=== PATIENT | female | born 1955 | race Caucasian/White ===

== ENCOUNTER 2024-07-26 21:00 | Inpatient (IN) ==
--- NOTE | 2024-07-27 00:42 | History & Physical Report ---
Date of Service July 27, 2024 Assessment & Plan (1) NSTEMI (non-ST elevated myocardial infarction): Plan: - Elevated troponin now downtrending, upon arrival to MD trop= 65 (peaked at 117) - Repeat EKG largely unchanged from prior and without acute ischemic changes - s/p 324mg asp - monitor on telemetry - try to obtain prior records - TTE ordered - consult cardiology, NPO pending eval (2) Acute kidney injury superimposed on CKD: Plan: - creatine noted to be 2.2 on Aries, down to 1.86 this evening - baseline appears to be 1.5-1.6 - continue to trend (3) DM2 (diabetes mellitus, type 2): Plan: - Noted history of DM2, hemoglobin a1c ordered - home medications- metformin/glimepiride- held, Farxiga not formulary - Lantus-> dosing unclear 8 units daily on fill list, 10 units BID on written list per pt-> 8 units daily ordered adjust based on a1c and BGs - SSI ordered (4) HTN (hypertension): Plan: - continue amlodipine, propanol - hold valsartan in the setting of MUKESH (5) HLD (hyperlipidemia): Plan: - continue statin - repeat lipid panel qAM (6) Leg edema: Plan: - B/L L>R - states that left is always greater than right, had US prior to r/u DVT. No calf tenderness - Venous stasis vs CHF - No pulm edema on CXR, elevated BNP at 261 - does not appear overtly hypervolemic on exam - TTE pending - continue home Lasix dose-> 40mg daily Plan Code: Full Dispo: PCU Diet: NPO pending cardiology eval VTE Prophylaxis: SCD, defer chemical pending cardiology eval Admission and Anticipated Discharge Date Admission Date: July 26, 2024 History of Present Illness Primary Care Provider: Cisco Bassett MD 69 year old female with a past medical history of DM2, HTN, HLD, CKD presenting as transfer from [place] for NSTEMI and cardiology evaluation. Pt states that she had 1 hour of left sided chest pain on Friday. Has not had any further episodes of chest pain. Over the past 2-3 has had increase dyspnea with exertion, which prompted her to go to the ED. She notes that she had a cardiology catheterization 2 years ago, but denies any stent placement. States that she followed with Dr. Patt Mcduffie for cardiology until she left [place]. Notes that she also follows with nephrology for CKD. At [place] work-up was significant for: CXR without pulm edema, mild LLL atelectasis. Creatine= 2.25 (baseline appears to be about 1.5), BNP= 378, Troponin 117-> 97. CBC unremarkable. EKG with SR, 1st degree AV block, non=spefic ST changes in anterolateral leads, no overt signs of acute ischemia. Was given 324mg asp. Allergies Allergy/AdvReac Type Severity Reaction Status Date / Time codeine Allergy Verified 07/27/24 01:46 Home Medications Medication Instructions Recorded Confirmed Type amlodipine 10 mg tablet 10 mg DAILY 07/27/24 07/27/24 History dapagliflozin propanediol 10 mg 10 mg DAILY 07/27/24 07/27/24 History tablet (Farxiga) famotidine 20 mg tablet 20 mg BID 07/27/24 07/27/24 History furosemide 80 mg tablet 40 mg DAILY 07/27/24 07/27/24 History glimepiride 4 mg tablet 8 mg DAILY 07/27/24 07/27/24 History insulin glargine 100 unit/mL (3 8 unit subcut HS 07/27/24 07/27/24 History mL) subcutaneous pen (Lantus Solostar U-100 Insulin) metformin 500 mg tablet,extended 500 mg PO DAILY 07/27/24 07/27/24 History release 24 hr metformin 500 mg tablet,extended 500 mg PO DAILY 07/27/24 07/27/24 History release 24 hr potassium chloride 10 mEq 10 meq PO DAILY 07/27/24 07/27/24 History tablet,extended release pravastatin 20 mg tablet 20 mg DAILY 07/27/24 07/27/24 History propranolol 20 mg tablet 20 mg BID 07/27/24 07/27/24 History valsartan 320 mg tablet 320 mg DAILY 07/27/24 07/27/24 History Past Med/Surg History Problem List (Updated 07/27/24 @ 18:03 by Milton Dawson MD) Pulmonary embolism Acute congestive heart failure Abnormal EKG Elevated troponin Chest discomfort Leg edema Venous stasis HLD (hyperlipidemia) HTN (hypertension) DM2 (diabetes mellitus, type 2) Acute kidney injury superimposed on CKD NSTEMI (non-ST elevated myocardial infarction) Surgical History History of tubal ligation Hx of cholecystectomy Social History Smoking Status: Never smoker Second Hand Exposure: No; Do You Dip or Chew Tobacco: No; Tobacco Cessation Education Requested by Patient: No Hx Alcohol Use: No Hx Substance Use: No Preferred Language: Mexican Communication Ability: Effective Business Administration Instructor Required: No Beliefs That Will Affect Care: None Current Living Situation: Spouse Current Living Situation Comment: lives at home with Other Information That Helps Us Care for You: No Feels Safe at Home: Yes Safety Concerns: Feels Safe At This Time Assistive Devices: Cane Review of Systems Review of Systems: As per above Physical Exam Physical Exam: Constitutional: well-appearing, no acute distress HEENT: NCAT, no conjunctival injection CV: regular rhythm, no murmur appreciated, extremities well-perfused, 1+ LE edema right, 2+ left LE Resp: CTABL, no wheezes/rales/rhonchi appreciated, no increased work of breathing GI: soft, nondistended, nontender, BS normoactive MSK: no gross deformities appreciated Skin: warm, dry, no rash appreciated Neuro: alert, oriented, no focal neurologic deficit appreciated Results & Data Results & Data Vital Signs (Past 12 Hours) Vital Signs Temp Pulse Pulse Resp BP Pulse Ox O2 Del Method 07/26/24 23:40 78 07/26/24 23:37 36.4 C L 81 16 188/83 H 92 Room Air Supervising Physician Co-Signing Physician Notes Attending addendum: I have physically seen this patient, have supervised the medical residents activities, and agree with the H&P unless as otherwise noted. Assessment and Plan: NSTEMI/hypertension- troponin 117 from hospital department emergency department, pulse 84 respirations 18, blood pressure 120/90 and pulse ox 95% on room air EKG was noted to have normal sinus rhythm with nonspecific EKG changes The patient will be admitted to telemetry for serial cardiac enzymes, serial EKG's, cardiac rhythm monitoring and a 2-D echocardiogram with Dopplers. Consult cardiology Patient had been given aspirin 324 mg in the ED referring hospital prior to transfer Primary symptom has been that of dyspnea on exertion Continue amlodipine and propranolol with hold parameters Acute kidney injury superimposed on CKD/nephrotic syndrome- Creatinine 2.25 referring Hospital, with base around 1.5-1.6 Improved to 1.86 labs this evening Follows with nephrology at [facility] Hold valsartan for now due to MUKESH Diabetes mellitus- Placed on Lantus as noted Placed on Accu-Cheks with NovoLog SSI Check a hemoglobin A1c Hold Farxiga, metformin and glimepiride Hyperlipidemia- Continue pravastatin Check a fasting lipid panel Lower extremity edema- Continue Lasix Follow clinical examination Resident Activity Tracking Resident Involvement: Resident Care Provided Care Provided: Adult Hospital Medicine
[2024-07-27 01:16] LABS: Basophils # (auto) 0.03 K/uL (0.00-0.20); Basophils % (auto) 0.3 %; Eosinophils # (auto) 0.23 K/uL (0.00-0.50); Hematocrit (blood only) 37.5 % (37.0-47.0); Hemoglobin 12.4 g/dl (12.0-16.0); Immature Granulocytes # (auto) 0.11 K/uL (0.01-0.20); Immature Granulocytes % (auto) 0.9 %; Lymphocytes # (auto) 3.89 K/uL (1.20-3.40); Lymphocytes % (auto) 33.6 %; Mean Corpuscular Hemoglobin 29.5 pg (25.0-34.0); Mean Corpuscular Hgb Conc 33.1 g/dL (32.0-36.0); Mean Corpuscular Volume 89.1 fL (80.0-100.0); Mean Platelet Volume 10.9 fL (9.4-12.4); Monocytes % (auto) 6.9 %; Neutrophils # (auto) 6.53 K/uL (1.40-6.50); Neutrophils % (auto) 56.3 %; Platelet Count 168 K/uL (130-400); RDW Coefficient of Variation 13.9 % (11.5-14.5); Red Blood Count 4.21 M/uL (4.20-5.40); White Blood Count 11.59 K/ul (4.8-10.8)
[2024-07-27 01:30] LABS: Albumin Globulin Ratio 1.2 (0.9-2); Albumin Level 3.5 gm/dl (3.4-5.0); BUN Creatinine Ratio 21.5 (10-20); Bilirubin,Total 0.4 mg/dl (0.2-1.0); Calcium 8.6 mg/dl (8.6-10.3); Creatinine Clr Calc Pharmacy 33.3 ml/min; Magnesium 1.9 mg/dl (1.7-2.4); Potassium 4.4 mmol/L (3.5-5.1); Total Protein 6.5 gm/dl (6.0-8.3)
[2024-07-27 01:39] LABS: Troponin I High Sensitivity 65.8 pg/ml (0-14)
[2024-07-27] MEDS ORDERED: DEXTROSE 50% 50 ML SYRINGE IV PRN (02:30)
[2024-07-27] MEDS ORDERED: GLUCOSE 10 TAB/TUBE PO PRN (02:30)
[2024-07-27] MEDS ORDERED: GLUCAGON FOR INJ 1 MG VIAL SQ PRN (02:30)
[2024-07-27] MEDS ORDERED: GLUCOSE 40% GEL 15 GM TUBE PO PRN (02:30)
[2024-07-27] MEDS ORDERED: CARBOHYDRATES FOR HYPOGLYCEMIA PO PRN (02:30)
[2024-07-27] MEDS ORDERED: Nursing to Pharmacy Communication SCH ×2 (03:15→12:45)
[2024-07-27] MEDS: INSULIN ASPART PER UNIT CHARGE SC SCH (06:10)
[2024-07-27] MEDS ORDERED: NITROGLYCERIN SL 0.4 MG/TAB TAB SL PRN ×2 (07:25)
[2024-07-27] MEDS: HEPARIN SODIUM/DEXTROSE 25,000 UNITS/500 ML BAG IV SCH (08:14)
[2024-07-27] MEDS: Heparin IV Adult Wt-Based Standard *NO* INITIAL Bolus Protocol IV SCH (08:14)
[2024-07-27] MEDS: SODIUM CHLORIDE 0.9% 1,000 ML IV SCH (08:17)
[2024-07-27] MEDS: NITROGLYCERIN 2% OINTMENT 30GM TUBE EXT SCH (08:23)
[2024-07-27] MEDS: amLODIPine BESYLATE 5 MG TAB PO SCH (08:26)
[2024-07-27] MEDS: LANTUS PER UNIT CHARGE SQ SCH (08:27)
[2024-07-27] MEDS: ASPIRIN 81 MG ECTAB PO SCH (08:27)
[2024-07-27] MEDS: FAMOTIDINE 20 MG TAB PO SCH (08:27)
[2024-07-27] MEDS: FUROSEMIDE 40 MG TAB PO SCH (08:27)
[2024-07-27] MEDS: PROPRANOLOL HCL 20 MG TAB PO SCH (08:28)
[2024-07-27] MEDS: POTASSIUM CHLORIDE 10 MEQ TABCR PO SCH (08:30)
[2024-07-27 08:41] LABS: Estimated Average Glucose 220 mg/dl; Hemoglobin A1C 9.3 % (4.5-5.6)
--- NOTE | 2024-07-27 08:45 | XRay Report ---
XR chest 1V portable CLINICAL HISTORY: Elevated BNP COMPARISON STUDY: No previous studies for comparison. FINDINGS: Lung volumes are normal. Lungs are clear. There is no pneumothorax or pleural effusion. The heart is moderately enlarged. Mediastinal contours are normal. There is no evidence for pulmonary ed joanna. IMPRESSION: Moderate cardiomegaly. No evidence for pulmonary edema. ACT 112: Negative or not required by law. Electronically signed by: Hal Goldberg M.D. 07/27/2024 8:44 AM
[2024-07-27 08:56] LABS: Cholesterol 296 mg/dl (0-200); HDL Cholesterol 33 mg/dl; Triglycerides 514 mg/dl (0-150)
--- NOTE | 2024-07-27 11:53 | Hospitalist Progress Note ---
Date of Service July 27, 2024 Assessment & Plan (1) Chest discomfort: Plan: Atypical left-sided chest discomfort. Telemetry. Could possibly be anginal from underlying coronary artery disease. Aspirin therapy and topical nitrates have been ordered along with a heparin drip. Cardiology consultation is requested. Cardiac echo report is pending (2) Elevated troponin: Plan: Continue serial troponin levels. Cardiac echo is pending. Cardiology consultation is pending (3) Abnormal EKG: Plan: Normal sinus rhythm with first-degree AV block with T wave inversions noted in the septal leads and lead III. She also has nonspecific ST segment changes. Cardiac echo is pending (4) HTN (hypertension): Plan: Stable. Valsartan is on hold due to acute on chronic kidney disease (5) DM2 (diabetes mellitus, type 2): Plan: ADA diet. Sliding scale coverage (6) Acute kidney injury superimposed on CKD: Plan: Monitor intake and output. Serial labs. Hold losartan for now Plan To be determined Admission and Anticipated Discharge Date Admission Date: July 26, 2024 Subjective Alert and oriented. Currently chest discomfort free. She had left-sided chest discomfort which occurred at rest and did not radiate but she did notice exertional dyspnea thereafter. No overt CHF on chest x-ray. EKG is abnormal with T wave inversions noted. Troponin is mildly elevated. Valsartan is on hold due to elevated creatinine. She has baseline chronic kidney disease. Heparin drip has been started along with aspirin therapy and topical nitrates. Cardiac echo report is pending. Cardiology consultation is also pending. She takes amlodipine, propranolol, pravastatin at baseline Review of Systems 2 Review of Systems: Constitutionalno fever or chills ENTno blurred vision, no double vision, no epistaxis, no sore throat Respiratoryno cough, no wheezing. She has developed dyspnea on exertion after recent episode of chest discomfort Cardiacno palpitations, no syncope. Left-sided chest discomfort at rest, no radiation Beto nausea, vomiting, diarrhea, melena, hematochezia GUno urinary retention, no urinary incontinence, no dysuria, no hematuria Musculoskeletalno joint pain, no muscle tenderness Skinno bruising, no rashes, no pruritus Neurono isolated weakness, no paresthesia, no weakness Psychno depression, no anxiety Physical Exam 2 Physical Exam: General-alert and oriented x3, no fever, no chills HEENT-head atraumatic and normocephalic, pupils equal and reactive to light, extraocular muscles intact Neck-no lymphadenopathy or thyromegaly, trachea midline Chest-clear to auscultation. No rales, wheezing or rhonchi Cardiac-regular rate and rhythm, normal S1 and S2 Abdomen-normal bowel sounds, no hepatosplenomegaly Extremities-no cyanosis, clubbing, or edema Neuro-cranial nerves II through XII intact, motor and sensory function within normal limits, strength symmetrical, no focal deficits Psych-normal affect, normal mood Results & Data Results & Data Vital Signs (Past 12 Hours) Vital Signs Temp Pulse Resp BP Pulse Ox O2 Del Method 07/27/24 11:36 36.5 C 65 20 151/76 H 96 Room Air 07/27/24 08:09 36.5 C 74 18 168/79 H 91 Room Air 07/27/24 08:00 Room Air 07/27/24 05:07 36.6 C 75 16 156/75 H 91 Room Air Laboratory Results 07/27/24 00:46 07/27/24 00:46 PG Care Time/CCT Total # of Minutes Spent Total Time Spent with Patient: Total time spent is greater than 50% in coordination of care (as documented) at patient's floor/unit and/or counseling patient: Coding Level of Care Code 78673 SUB INP/OBS CARE 3/50MIN Diagnoses Chest discomfort R07.89 Elevated troponin R79.89 Abnormal EKG R94.31 HTN (hypertension) I10 DM2 (diabetes mellitus, type 2) E11.9 Acute kidney injury superimposed on CKD N17.9; N18.9
--- NOTE | 2024-07-27 12:50 | Cardiology Consultation ---
Date of Consultation July 27, 2024 Assessment & Plan (1) Elevated troponin: (2) Abnormal EKG: (3) Chest discomfort: (4) Acute congestive heart failure: Plan Ms. Abrams symptoms and mild elevation in her troponin are less likely to represent an acute coronary event. She had mild to moderate coronary disease on her cardiac catheterization a year ago. Her troponin elevation is very minimal. This may reflect demand ischemia in the setting of heart failure. Ms. Abrams reports that she has had progressive swelling in her lower extremities over the last year. Her BNP was elevated. She had a dose of oral furosemide this morning. I will give her a one time dose of IV furosemide today. She does have new Q waves in her lateral leads. She had an echo taken this morning and read is pending. Further recommendations to come based on results. For now her heparin drip and fluids can be stopped. She can have a diet ordered. Her valsartan has been held for her MUKESH. She can be changed to Entresto which we could consider adding tomorrow based on her kidney function. She is on an SGLT2i. Given her poorly controlled A1c, heart failure, and obesity she would benefit from the addition of a GLP-1. A direct LDL was added to her labs for the morning. She has very high TG and will need more aggressive lipid control. I would recommend she switch from pravastatin to rosuvastatin and she will likely need Vascepa as well. ADDENDUM: Called acutely at 4:21 that patient became hypotensive and bradycardiac as well as unresponsive coming back from the bathroom. Code blue called; CPR initiated. ECG shows diffuse ST depression with RBBB which is new along with ST elevation in V1-2. STAT ECHO done showing dilated Right heart without new WMA-working diagnosis is acute PE. TPA initiate in the setting of ongoing CPR as well as mechanical ventilation. Very transient rhythm with pulse by doppler, however then lost pulse again. CODE called when ROSC could not be obtained after about 50 minutes. Await arrival of family to inform of findings. Other pertinent findings-LHC done January 2023 at [facility] showed [id number]% LAD disease without significant obstructive CAD. ECHO in January 2023 showed normal LV function diastolic dysfunction. Mild RV dilatation with normal function. History of Present Illness Attending Physician: Milton Dawson MD History of Present Illness On Friday Ms. Perks had about an hour of left breast pain and then again to a lesser extent on Friday. No radiation. Not associated with exertion. She had worsening dyspnea with exertion over the last week. On Friday she did have an episode of palpitations with the chest pain but she has never felt anything like that before. She notes increasing edema in her lower extremities over the last year. Today she is chest pain free. She is still dyspneic getting up and walking around the room. No ectopy on the monitor. Allergies Allergy/AdvReac Type Severity Reaction Status Date / Time codeine Allergy Verified 07/27/24 01:46 Home Medications Medication Instructions Recorded Confirmed Type amlodipine 10 mg tablet 10 mg DAILY 07/27/24 07/27/24 History dapagliflozin propanediol 10 mg 10 mg DAILY 07/27/24 07/27/24 History tablet (Farxiga) famotidine 20 mg tablet 20 mg BID 07/27/24 07/27/24 History furosemide 80 mg tablet 40 mg DAILY 07/27/24 07/27/24 History glimepiride 4 mg tablet 8 mg DAILY 07/27/24 07/27/24 History insulin glargine 100 unit/mL (3 8 unit subcut HS 07/27/24 07/27/24 History mL) subcutaneous pen (Lantus Solostar U-100 Insulin) metformin 500 mg tablet,extended 500 mg PO DAILY 07/27/24 07/27/24 History release 24 hr metformin 500 mg tablet,extended 500 mg PO DAILY 07/27/24 07/27/24 History release 24 hr potassium chloride 10 mEq 10 meq PO DAILY 07/27/24 07/27/24 History tablet,extended release pravastatin 20 mg tablet 20 mg DAILY 07/27/24 07/27/24 History propranolol 20 mg tablet 20 mg BID 07/27/24 07/27/24 History valsartan 320 mg tablet 320 mg DAILY 07/27/24 07/27/24 History Patient History Surgical History History of tubal ligation Hx of cholecystectomy Social History Smoking Status: Never smoker Second Hand Exposure: No; Do You Dip or Chew Tobacco: No; Tobacco Cessation Education Requested by Patient: No Hx Alcohol Use: No Hx Substance Use: No Preferred Language: Kazakh Communication Ability: Effective Sheltered Workshop Executive Director Required: No Beliefs That Will Affect Care: None Current Living Situation: Spouse Current Living Situation Comment: lives at home with Other Information That Helps Us Care for You: No Feels Safe at Home: Yes Safety Concerns: Feels Safe At This Time Assistive Devices: Cane Review of Systems Review of Systems: All systems reviewed & are unremarkable except as noted in HPI & below Physical Exam Constitutional: WD/WN, vitals as above Respiratory: normal respiratory effort, lungs clear to auscultation Cardiovascular: RRR, no murmur, no edema Skin: no rashes, warm and dry Neurologic: moves all extremities and awake Psychiatric: A+Ox3, euthymic affect Results & Data Vital Signs (Past 12 Hours) Vital Signs Temp Pulse Resp BP Pulse Ox O2 Del Method 07/27/24 11:36 36.5 C 65 20 151/76 H 96 Room Air 07/27/24 08:09 36.5 C 74 18 168/79 H 91 Room Air 07/27/24 08:00 Room Air 07/27/24 05:07 36.6 C 75 16 156/75 H 91 Room Air
[2024-07-27] MEDS: ACETAMINOPHEN 325 MG TAB PO PRN (13:25)
[2024-07-27] MEDS: FUROSEMIDE INJ 20 MG/2 ML VIAL IV ONE (13:37)
[2024-07-27] MEDS ORDERED: MIDAZOLAM HCL 1 MG/ML 2ML VIAL ONE (16:28)
[2024-07-27] MEDS ORDERED: HEPARIN (PORCINE) 1000 UNIT/ML 10 ML (CATH LAB USE ONLY) ONE (16:28)
[2024-07-27] MEDS ORDERED: OPTIRAY 350 ONE (16:29)
[2024-07-27] MEDS ORDERED: NITROGLYCERIN/D5W 100MCG/ML 20ML SYR ONE (16:29)
[2024-07-27] MEDS ORDERED: fentaNYL citrate PF 100 MCG/2 ML VIAL ONE (16:29)
[2024-07-27] MEDS ORDERED: niCARdipine 2,000 MCG/20 ML SYR ONE (16:29)
[2024-07-27] MEDS ORDERED: INSULIN ASPART PER UNIT CHARGE SC SCH (16:30)
[2024-07-27] MEDS ORDERED: LIDOCAINE 1% LOCAL 20 ML VIAL ONE (16:33)
[2024-07-27] MEDS ORDERED: [UNRECOGNIZED DRUG - OTHER] IV STA (16:45)
[2024-07-27] MEDS ORDERED: ALTEPLASE 50 MG IV STA (16:45)
[2024-07-27] MEDS ORDERED: RAPID SEQUENCE INDUCTION BAG ONE (16:46)
[2024-07-27] MEDS ORDERED: Standard Conc; 4 MG in 250 mL for HYPOTENSION IV SCH (17:00)
--- NOTE | 2024-07-27 17:12 | Procedure Note ---
Procedure Note Date of Service July 27, 2024 INTUBATION PROCEDURE NOTE: Provider: Hardik Samuels MD Procedure was emergent as the patient suffered a cardiac arrest. Arrived on the floor in response to a CODE BLUE. The patient was undergoing CPR. We initially attempted laryngoscopy during a CPR break however the patient was awake enough to clench her teeth. We continued CPR where she received 40 mg of IV etomidate. Direct laryngoscopy this was performed with a 7.5 tube seen passing the vocal cords. End-tidal CO2 and bilateral breath sounds were detected. The patient was attached to the ventilator and transported to the ICU.. [facility] [place]odes (Charges) Resuscitation Resuscitation: 13217 Endotracheal Intubation, emergency Coding CPT Codes Resuscitation - Resuscitation: 19733 Endotracheal Intubation, emergency ([id number]) Additional Codes Date of Service (PG.SURGERY)
--- NOTE | 2024-07-27 17:13 | Procedure Note ---
Procedure Note Date of Service July 27, 2024 CPR note: Initially responded to CODE BLUE on the floor. See intubation note. The patient was transported to the ICU. Dr. Morales from cardiology as well as Dr. Perez from the internal medicine service were bedside. Echocardiogram was performed on the floor which demonstrated a severely dilated RV concerning for PE. The patient received 50 mg of tPA for presumptive pulmonary embolism. CPR was continued for an additional 20 minutes. We very briefly were able to get a pulse however it was not able to be sustained and the patient required continued CPR. I performed a bedside echocardiogram on the patient which demonstrated minimal cardiac contractility at this point in time. After over 50 minutes of CPR, the patient was pronounced with time of being 1707. Please refer to the hospitalist notes for additional details. [facility] Procedure Codes (Charges) Resuscitation Resuscitation: 20738 Heart/lung resuscitation CPR Coding CPT Codes Resuscitation - Resuscitation: 49022 Heart/lung resuscitation CPR ([id number]) Additional Codes Date of Service (PG.SURGERY)
--- NOTE | 2024-07-27 17:29 | Death Pronouncement Note ---
Date of Service July 27, 2024 Pronouncement Note Admission Date July 26, 2024 Preliminary Cause of (1) Pulmonary embolism: Additional Comments: Suspected cause of is massive pulmonary embolism resulting in cardiac arrest. (2) Chest discomfort: Additional Comments: Suspected massive pulmonary embolism causing cardiac arrest and subsequent (3) Elevated troponin: Additional Comments: doubtful NSTEMI. Mild troponin elevation and downtrending levels. Chest discomfort atypical for unstable angina (4) Abnormal EKG: (5) HTN (hypertension): (6) DM2 (diabetes mellitus, type 2): (7) Acute kidney injury superimposed on CKD: Contributing Factors elderly, CKD-stage 3, type 2 DM, HTN Summary The patient was initially evaluated in [place] emergency room for atypical chest pain with abnormal EKG and the presumed diagnosis was non-ST elevation HI. Troponins were minimally elevated. She was transferred to [facility] for further care. She was started on a heparin drip along with topical nitrates and cardiology consultation was requested. She was seen in the adobe ball mixer hours of July 27 and was pain-free and hemodynamically stable. However around 4:20 PM a code purple was called when she became hypotensive and unresponsive and subsequently a CODE BLUE was called. She was transiently resu scitated, intubated, and transferred to the ICU where another CODE BLUE was called and this time she did not respond and subsequently at 5:07 PM. Cardiac echo was repeated during the CODE BLUE situation and left ventricular function was not entirely normal but appeared to be satisfactory enough to prevent cardiogenic shock. The right ventricle however appeared to be dilated consistent with pressure overload. Stat EKG was most consistent with acute PE per cardiology interpretation. She was transferred to the ICU and she coded again and did not respond. She subsequently and pronounced at 5:07 PM. Additional Data Attending physician: Milton Dawson MD Coding Level of Care Code 29788 IN/OBS DISCH 30 MIN/LESS Diagnoses Pulmonary embolism I26.99 Chest discomfort R07.89 Elevated troponin R79.89 Abnormal EKG R94.31 HTN (hypertension) I10 DM2 (diabetes mellitus, type 2) E11.9 Acute kidney injury superimposed on CKD N17.9; N18.9
--- NOTE | 2024-07-27 17:37 | Cardiology Consultation ---
Date of Consultation July 27, 2024 History of Present Illness Reason for Consultation: INTERVENTIONAL CARDIOLOGY CONSULT Attending Physician: Milton Dawson MD History of Present Illness 69-year-old morbidly obese female who was transferred from [facility] where she initially presented with chest pain and shortness of breath and then just had shortness of breath. Transferred to this institution for mildly elevated troponin. It is unclear to me what workup was done in the [facility]. She did have a prior catheterization 1 year ago which showed only mild coronary disease. Here, it sounds as if she did relatively well initially. However, she evidently got up to walk around the room and developed sudden dyspnea. A code purple was called for respiratory distress. Shortly thereafter a code "heart alert" was called for which I was asked to come and see her. However, before I arrived a CODE BLUE was called and she was undergoing resuscitative efforts on my arrival. They were able to get a pulse and rhythm for short time while she was on epinephrine and we had a quick limited echo performed to evaluate wall motion. She did have an change in her EKG from her baseline which essentially showed sinus bradycardia, first-degree AV block, and LVH. Subsequent EKGs suggested S1, Q3, T3 versus new right bundle branch block with borderline inferior ST elevations. The limited echo was suggestive of normal functioning LV with the septum being abnormal in motion as well as in shape (D shape consistent with RV pressure/volume overload). The RV appeared quite large compared to prior although measurements could not be taken because of poor image quality. The RV also did not appear to be francis. Patient was subsequently transferred to the ICU where she again lost pulse. She had several bradycardia episodes and eventually . She was given tPA by the mail processing associate on my suspicion that she had large pulmonary embolism or RV infarct, but she was not at that point sustaining any meaningful contraction. Ultimately, the patient was unable to sustain a pulse or blood pressure and was declared . Allergies Allergy/AdvReac Type Severity Reaction Status Date / Time codeine Allergy Verified 07/27/24 01:46 Home Medications Medication Instructions Recorded Confirmed Type amlodipine 10 mg tablet 10 mg DAILY 07/27/24 07/27/24 History dapagliflozin propanediol 10 mg 10 mg DAILY 07/27/24 07/27/24 History tablet (Farxiga) famotidine 20 mg tablet 20 mg BID 07/27/24 07/27/24 History furosemide 80 mg tablet 40 mg DAILY 07/27/24 07/27/24 History glimepiride 4 mg tablet 8 mg DAILY 07/27/24 07/27/24 History insulin glargine 100 unit/mL (3 8 unit subcut HS 07/27/24 07/27/24 History mL) subcutaneous pen (Lantus Solostar U-100 Insulin) metformin 500 mg tablet,extended 500 mg PO DAILY 07/27/24 07/27/24 History release 24 hr metformin 500 mg tablet,extended 500 mg PO DAILY 07/27/24 07/27/24 History release 24 hr potassium chloride 10 mEq 10 meq PO DAILY 07/27/24 07/27/24 History tablet,extended release pravastatin 20 mg tablet 20 mg DAILY 07/27/24 07/27/24 History propranolol 20 mg tablet 20 mg BID 07/27/24 07/27/24 History valsartan 320 mg tablet 320 mg DAILY 07/27/24 07/27/24 History Patient History Surgical History History of tubal ligation Hx of cholecystectomy Social History Smoking Status: Never smoker Second Hand Exposure: No; Do You Dip or Chew Tobacco: No; Tobacco Cessation Education Requested by Patient: No Hx Alcohol Use: No Hx Substance Use: No Preferred Language: Tamazight Communication Ability: Effective Heel Attacher Required: No Beliefs That Will Affect Care: None Current Living Situation: Spouse Current Living Situation Comment: lives at home with Other Information That Helps Us Care for You: No Feels Safe at Home: Yes Safety Concerns: Feels Safe At This Time Assistive Devices: Cane Results & Data Vital Signs (Past 12 Hours) Vital Signs Temp Pulse Resp BP Pulse Ox O2 Del Method 07/27/24 16:08 36.5 C 68 18 164/73 H 91 Room Air 07/27/24 11:36 36.5 C 65 20 151/76 H 96 Room Air 07/27/24 08:09 36.5 C 74 18 168/79 H 91 Room Air 07/27/24 08:00 Room Air PG Care Time/CCT Total # of Minutes Spent Total Time Spent with Patient: Total time spent is greater than 50% in coordination of care (as documented) at patient's floor/unit and/or counseling patient: Coding Level of Care Code 50194 INT INP/OBS CARE 2/55MIN Time Spent (min) 60
--- NOTE | 2024-07-27 18:08 | Discharge Summary ---
Discharge Summary Date of Service July 27, 2024 Principal Dx & Hospital Course #1 = Principal Diagnosis (1) Pulmonary embolism: Suspected massive pulmonary embolism causing atypical chest pain and shortness of breath. Treated with intravenous heparin and she was given tPA during the CODE BLUE procedure. Cardiac echo during the CODE BLUE procedure revealed satisfactory left ventricular function with regional wall motion abnormalities but not severe enough to cause the clinical presentation. The right ventricle appeared to be dilated and hypokinetic consistent with pressure overload due to probable massive pulmonary embolism (2) Chest discomfort: Atypical left-sided chest discomfort. Telemetry. Could possibly be anginal from underlying coronary artery disease. Aspirin therapy and topical nitrates have been ordered along with a heparin drip. Cardiology consultation is requested. Cardiac echo report is pending (3) Elevated troponin: Continue serial troponin levels. Cardiac echo is pending. Cardiology consultation is pending (4) Abnormal EKG: Normal sinus rhythm with first-degree AV block with T wave inversions noted in the septal leads and lead III. She also has nonspecific ST segment changes. Cardiac echo is pending (5) HTN (hypertension): Stable. Valsartan is on hold due to acute on chronic kidney disease (6) DM2 (diabetes mellitus, type 2): ADA diet. Sliding scale coverage (7) Acute kidney injury superimposed on CKD: Monitor intake and output. Serial labs. Hold losartan for now Plan Not applicable. The patient and was pronounced at 5:07 PM July 27. Family was notified and they were updated on what happened when they arrived. Admission HPI Per Admitting Provider 69 year old female with a past medical history of DM2, HTN, HLD, CKD presenting as transfer from [facility] for NSTEMI and cardiology evaluation. Pt states that she had 1 hour of left sided chest pain on Friday. Has not had any further episodes of chest pain. Over the past 2-3 has had increase dyspnea with exertion, which prompted her to go to the ED. She notes that she had a cardiology catheterization 2 years ago, but denies any stent placement. States that she followed with Dr. Patt Mcduffie for cardiology until she left [facility]. Notes that she also follows with nephrology for CKD. At [facility] work-up was significant for: CXR without pulm edema, mild LLL atelectasis. Creatine= 2.25 (baseline appears to be about 1.5), BNP= 378, Troponin 117-> 97. CBC unremarkable. EKG with SR, 1st degree AV block, non=spefic ST changes in anterolateral leads, no overt signs of acute ischemia. Was given 324mg asp. Discharge Exam Not applicable Discharge Plan Discharge Items Patient Disposition: Reason For Visit: NSTEMI Follow-up/Referrals: Cisco Bassett MD [Primary Care Provider] - [facility] Loss Claim [facility] Provider Instructions: DIABETES RECOMMENDATIONS: 1.) Lifestyle changes- focus on regular/balanced meals (protein with all meals, fruit with breakfast, vegetables with lunch and dinner) and watch portion sizes of carbohydrates/starches. 2.) Continue Dexcom CGM to help guide diet/diabetes medication adjustments. 3.) Discontinue Metformin. Pt does not tolerate d/t GI side effects. 4.) Discontinue Glimepiride. No need for same when on insulin and only increases risk of hypoglycemia. 5.) Take Humalog ~10 minutes before meals. May need a lower dose when eating less. 6.) Continue to follow-up with [facility] (Dr. Smith) for diabetes care needs. Next appointment in September 25. Medications and DC Order Prescriptions: No Action amlodipine 10 mg tablet 10 mg DAILY valsartan 320 mg tablet 320 mg DAILY pravastatin 20 mg tablet 20 mg DAILY propranolol 20 mg tablet 20 mg BID metformin 500 mg tablet extended release 24 hr 500 mg PO DAILY metformin 500 mg tablet extended release 24 hr 500 mg PO DAILY dapagliflozin propanediol [Farxiga] 10 mg tablet 10 mg DAILY famotidine 20 mg tablet 20 mg BID glimepiride 4 mg tablet 8 mg DAILY insulin glargine [Lantus Solostar U-100 Insulin] 100 unit/mL (3 mL) insulin pen 8 unit SUBCUT HS potassium chloride 10 mEq tablet extended release 10 meq PO DAILY furosemide 80 mg tablet 40 mg DAILY Admission Data Admit Date/Time: 07/26/24 23:45 Attending Provider: Milton Dawson Admit Provider: Sadia Germain Primary Care Provider: Cisco Bassett Other Providers: Rafael Dozier Hospital Stay Data Consultations 07/27/24 08:00 Consult Cardiology Routine Procedures Performed Operation Date: 07/27/24 16:30 <No data on this case meets the specified criteria> Diagnostic Imagining Performed 07/27/24 16:27 CL Cath Imgs for PACS use only Routine Total Time Total Time Spent Total Time Spent (In Minutes): 30-minute Coding Level of Care Code 72711 IN/OBS DISCH 30 MIN/LESS Diagnoses Pulmonary embolism I26.99 Chest discomfort R07.89 Elevated troponin R79.89 Abnormal EKG R94.31 HTN (hypertension) I10 DM2 (diabetes mellitus, type 2) E11.9 Acute kidney injury superimposed on CKD N17.9; N18.9
--- NOTE | 2024-07-27 18:25 | Electrocardiogram Report ---
Test Reason : Blood Pressure : */* mmHG Vent. Rate : 72 BPM Atrial Rate : 72 BPM P-R Int : 234 ms QRS Dur : 98 ms QT Int : 422 ms P-R-T Axes : 6 -42 24 degrees QTcB Int : 462 ms Sinus rhythm with 1st degree A-V block Left axis deviation Moderate voltage criteria for LVH, may be normal variant Poor R wave progression, consider anterior AL vs. lead placement vs. LVH Abnormal ECG No previous ECGs available Confirmed by Rafael Dozier ([id number]) on 07/27/2024 6:25:07 PM Referred By: REFERRED SELF Confirmed By: Rafael Dozier
--- NOTE | 2024-07-27 18:37 | Electrocardiogram Report ---
Test Reason : Blood Pressure : */* mmHG Vent. Rate : 91 BPM Atrial Rate : 90 BPM P-R Int : 224 ms QRS Dur : 118 ms QT Int : 344 ms P-R-T Axes : 62 -69 54 degrees QTcB Int : 423 ms Sinus rhythm with 1st degree A-V block Left axis deviation Right bundle branch block Minimal voltage criteria for LVH, may be normal variant Inferior infarct , possibly acute Anterolateral infarct (cited on or before 27-Jul-2024) ACUTE DC / STEMI Consider right ventricular involvement in acute inferior infarct Abnormal ECG When compared with ECG of 27-Jul-2024 01:02, (unconfirmed) Right bundle branch block is now Present Inferior infarct is now Present Confirmed by Rafael Dozier ([id number]) on 07/27/2024 6:36:58 PM Referred By: REFERRED SELF Confirmed By: Rafael Dozier
--- NOTE | 2024-07-27 19:00 | Billing Data ---
Date of Service July 27, 2024 Coding Level of Care Code 09245 INT INP/OBS CARE
[2024-07-27] MEDS ORDERED: SODIUM CHLORIDE 0.9% 10ML FLUSH IV ONE ×2 (20:24)
[2024-07-27] MEDS ORDERED: SODIUM BICARB 8.4% INJ 50 MEQ/50 ML SYR IV ONE (20:24)
[2024-07-27] MEDS ORDERED: ATROPINE SULFATE 0.1 MG/ML 10ML SYR IV ONE (20:24)
[2024-07-27] MEDS ORDERED: CALCIUM CHLORIDE 10% 10 ML SYR IV ONE (20:24)
[2024-07-27] MEDS ORDERED: ETOMIDATE 2 MG/ML 20 ML VIAL IV ONE (20:24)
[2024-07-27] MEDS ORDERED: ROCURONIUM BROMIDE 10 MG/ML 5 ML VIAL IV ONE (20:24)
[2024-07-27] MEDS ORDERED: PRAVASTATIN SOD 20 MG TAB PO SCH (21:00)
[2024-07-28] MEDS ORDERED: ROSUVASTATIN CALCIUM 10 MG TAB PO SCH (09:00)
== END 2024-07-27 20:25 | disposition expired | DRG 208 ==
LOC: 2S 23:31 → SUATTDRO 23:45 → 1E 07-27 16:56